=== PATIENT | female | born 1970 | race Caucasian/White ===

== ENCOUNTER → 2017-01-17 | Outpatient (REF) | payer OTHER ==
[~2017-01-17] MED LIST: ATIV1TAB10 PO; DEXI30CA2 PO; FLAG500T PO; LEVO137T2 PO; VANC125C2 PO
== END ==
LOC: M LAB REF 16:26
PROVIDERS: ATTEND Physician Assistant
DX: R19.7 Diarrhea, unspecified (principal)

== ENCOUNTER 2017-01-24 09:32 | Emergency (ER) | payer BC, OTHER ==
[~2017-01-24] VITALS: Ht 165.1 cm; Wt 78.6 kg
[2017-01-24] MEDS ORDERED: DEXI30CA2 PO (09:42)
[2017-01-24] MEDS ORDERED: LEVO137T2 PO (09:42)
[2017-01-24] MEDS ORDERED: FLAG500T PO (09:42)
[2017-01-24] MEDS ORDERED: ATIV1TAB10 PO (09:42)
[2017-01-24] MEDS ORDERED: NS 1,000 ML IV ONE (10:15)
[2017-01-24] MEDS ORDERED: METOCLOPRAMIDE INJ 10MG/2ML VIAL (J2765) IV ONE (10:15)
[2017-01-24 10:34] LABS: BASO % 0.2 % (0.0-1.0); EOS # 0.1 K/mm3 (0.0-0.50); LARGE UNSTAINED CELL # 0.1 K/mm3 (0.0-0.4); LARGE UNSTAINED CELL % 2.1 % (0.0-4.0); LYMPH % 16.5 % (24.0-44.0); MEAN CORPUSCULAR HEMOGLOBIN 33.5 pg (27.0-33.0); MEAN CORPUSCULAR HGB CONC 33.7 g/dl (32.0-36.5); MEAN CORPUSCULAR VOLUME 99.2 fl (80.0-96.0); MONO # 0.3 K/mm3 (0.0-0.8); MONO % 5.2 % (0.0-5.0); NEUTROPHILS # 4.6 K/mm3 (1.8-7.7); NEUTROPHILS % 73.9 % (36.0-66.0); PLATELET COUNT, AUTOMATED 345 k/mm3 (150-450); RED CELL DISTRIBUTION WIDTH 13.1 % (11.5-14.5); WHITE BLOOD COUNT 6.2 K/mm3 (4.0-10.0)
[2017-01-24 10:39] LABS: INR 0.99
[2017-01-24 11:02] LABS: ALBUMIN 3.5 GM/DL (3.2-5.2); ALBUMIN/GLOBULIN RATIO 0.92 (1.00-1.93); ALKALINE PHOSPHATASE 49 U/L (45-117); ALT/SGPT 58 U/L (12-78); ANION GAP 7 MEQ/L (8-16); AST/SGOT 37 U/L (15-37); BILIRUBIN,DIRECT < 0.1 MG/DL (0.0-0.2); BILIRUBIN,TOTAL 0.2 MG/DL (0.2-1.0); BLOOD UREA NITROGEN 13 MG/DL (7-18); CALCIUM LEVEL 8.9 MG/DL (8.5-10.1); CARBON DIOXIDE LEVEL 27 MEQ/L (21-32); CHLORIDE LEVEL 105 MEQ/L (98-107); CREATININE FOR GFR 0.77 MG/DL (0.55-1.02); GLOMERULAR FILTRATION RATE > 60.0 (>58); GLUCOSE, FASTING 101 MG/DL (70-105); POTASSIUM SERUM 3.9 MEQ/L (3.5-5.1); SODIUM LEVEL 139 MEQ/L (136-145); TOTAL PROTEIN 7.3 GM/DL (6.4-8.2)
[2017-01-24] MEDS ORDERED: VANC125C2 PO (11:15)
[2017-01-24 11:26] VITALS: BP 113/67
== END 2017-01-24 11:30 | disposition home or self-care (01) ==
LOC: M ED 09:32
DX: A04.7 Enterocolitis due to Clostridium difficile (principal)
CPT/HCPCS: 80048; 80076; 83690; 85025; 85610; 96374; 99283; J2765

== ENCOUNTER → 2017-03-03 | Outpatient (CLI) | payer BC, OTHER ==
[2017-03-03 12:49] LABS: BASO % 0.4 % (0.0-1.0); EOS # 0.2 K/mm3 (0.0-0.50); EOS % 2.5 % (0.0-3.0); LARGE UNSTAINED CELL # 0.1 K/mm3 (0.0-0.4); LYMPH # 0.8 K/mm3 (1.5-4.5); LYMPH % 13.3 % (24.0-44.0); MEAN CORPUSCULAR HEMOGLOBIN 33.8 pg (27.0-33.0); MEAN CORPUSCULAR HGB CONC 33.2 g/dl (32.0-36.5); MEAN CORPUSCULAR VOLUME 101.8 fl (80.0-96.0); MONO # 0.3 K/mm3 (0.0-0.8); MONO % 4.4 % (0.0-5.0); NEUTROPHILS # 4.8 K/mm3 (1.8-7.7); NEUTROPHILS % 77.3 % (36.0-66.0); PLATELET COUNT, AUTOMATED 259 k/mm3 (150-450); RED CELL DISTRIBUTION WIDTH 13.3 % (11.5-14.5); WHITE BLOOD COUNT 6.2 K/mm3 (4.0-10.0)
[2017-03-03 13:16] LABS: ALBUMIN 3.3 GM/DL (3.2-5.2); ALKALINE PHOSPHATASE 54 U/L (45-117); ALT/SGPT 31 U/L (12-78); ANION GAP 11 MEQ/L (8-16); AST/SGOT 27 U/L (15-37); BILIRUBIN,TOTAL 0.3 MG/DL (0.2-1.0); BLOOD UREA NITROGEN 8 MG/DL (7-18); CALCIUM LEVEL 8.1 MG/DL (8.5-10.1); CARBON DIOXIDE LEVEL 22 MEQ/L (21-32); CHLORIDE LEVEL 110 MEQ/L (98-107); GLOMERULAR FILTRATION RATE > 60.0 (>58); GLUCOSE, FASTING 140 MG/DL (70-105); SODIUM LEVEL 143 MEQ/L (136-145); TOTAL PROTEIN 6.6 GM/DL (6.4-8.2)
== END ==
LOC: M LAB 11:28
PROVIDERS: ATTEND Physician Assistant
DX: A04.7 Enterocolitis due to Clostridium difficile (principal)

== ENCOUNTER → 2018-02-13 | Outpatient (REF) ==
[2018-02-13 14:55] LABS: RUBELLA IgG QUALITATIVE EQUIVOCAL (IMMUNE)
[2018-02-14 10:21] LABS: RUBEOLA IgG ANTIBODY <25.0 AU/mL (Immune >29.9)
== END ==
LOC: M LAB 13:08
DX: Z00.00 Encounter for general adult medical examination without abnormal findings (principal)

== ENCOUNTER → 2021-09-02 | Outpatient (CLI) | payer BC, MEDICAID, OTHER ==
[~2021-09-02] MED LIST changes: +E-Z-GAS II EFFERVESCENT PACKET (SODIUM BICARB./CITRIC ACID/SIMETHICONE) As Ordered ONE; +E-Z-HD 98% w/w 340GM SUSP BTL As Ordered ONE; +E-Z-PAQUE 96% w/w SUSP 176GM BTL As Ordered ONE; -VANC125C2 PO; +VANC125C3 PO
== END ==
LOC: M RAD 08:12
PROVIDERS: ATTEND Nurse Practitioner Family
DX: K44.9 Diaphragmatic hernia without obstruction or gangrene (principal); Z97.5 Presence of (intrauterine) contraceptive device

== ENCOUNTER → 2021-09-19 | Outpatient (CLI) | payer MEDICAID, OTHER ==
[~2021-09-19] MED LIST changes: -E-Z-GAS II EFFERVESCENT PACKET (SODIUM BICARB./CITRIC ACID/SIMETHICONE) As Ordered ONE; -E-Z-HD 98% w/w 340GM SUSP BTL As Ordered ONE; -E-Z-PAQUE 96% w/w SUSP 176GM BTL As Ordered ONE
== END ==
LOC: M LABSMTC 09:25
PROVIDERS: ATTEND Anesthesiology
DX: Z11.52 Encounter for screening for COVID-19 (principal)

== ENCOUNTER 2021-09-24 10:41 | Day surgery (SDC) | payer MEDICAID, OTHER ==
[~2021-09-24] VITALS: Ht 167.6 cm; Wt 95.3 kg
[~2021-09-24 10:41] MED LIST changes: +NS 1,000 ML IV ONE
[2021-09-24] MEDS ORDERED: LIDOCAINE 2% 100MG/5ML SDV (FOR ANES.) As Ordered ONE (12:41)
[2021-09-24] MEDS ORDERED: propofoL 200 MG/20 ML VIAL As Ordered ONE (12:41)
[2021-09-24] MEDS ORDERED: fentaNYL 100 MCG/2 ML INJECTION As Ordered ONE (12:41)
[2021-09-24 13:18] VITALS: BP 139/94
== END 2021-09-24 13:30 | disposition home or self-care (01) ==
LOC: M OPP 10:41
PROVIDERS: ATTEND Surgery
DX: K21.00 Gastro-esophageal reflux disease with esophagitis, without bleeding (principal); K44.9 Diaphragmatic hernia without obstruction or gangrene; K31.7 Polyp of stomach and duodenum; Z79.899 Other long term (current) drug therapy; Z91.030 Bee allergy status; Z86.19 Personal history of other infectious and parasitic diseases
CPT/HCPCS: 43239; 88305; J3010

== ENCOUNTER → 2021-10-12 | Outpatient (CLI) | payer OTHER ==
[~2021-10-12] MED LIST changes: -NS 1,000 ML IV ONE
== END ==
LOC: M WHC 07:17
PROVIDERS: ATTEND Physician Assistant
DX: R10.11 Right upper quadrant pain (principal); R11.2 Nausea with vomiting, unspecified; K21.9 Gastro-esophageal reflux disease without esophagitis; K76.0 Fatty (change of) liver, not elsewhere classified

== ENCOUNTER → 2022-01-10 | Outpatient (CLI) | payer OTHER | LOC: M LABSMTC 11:22 | PROVIDERS: ATTEND Internal Medicine Gastroenterology | DX: Z01.812 Encounter for preprocedural laboratory examination (principal); Z11.52 Encounter for screening for COVID-19 ==

== ENCOUNTER 2022-06-30 12:16 | Emergency (ER) | payer OTHER ==
[~2022-06-30] VITALS: Ht 165.1 cm; Wt 80.7 kg
[2022-06-30] MEDS ORDERED: ALBU8.5H (12:39)
[2022-06-30] MEDS ORDERED: PANT40TA29 (12:39)
[2022-06-30] MEDS ORDERED: PHEN37.58 (12:39)
[2022-06-30] MEDS ORDERED: CYCL-707 (12:39)
[2022-06-30] MEDS ORDERED: FEXO-112 (12:39)
[2022-06-30] MEDS ORDERED: BUDE10.7 (12:39)
[2022-06-30] MEDS ORDERED: PRAM0.123 (12:39)
[2022-06-30] MEDS ORDERED: ZOLP10TA2 (12:39)
[2022-06-30] MEDS ORDERED: NAPR-837 PO (16:02)
[2022-06-30 16:06] VITALS: BP 137/80
== END 2022-06-30 16:10 | disposition home or self-care (01) ==
LOC: M ED 12:16
DX: M23.91 Unspecified internal derangement of right knee (principal); W01.0XXA Fall on same level from slipping, tripping and stumbling without subsequent striking against object, initial encounter; Y99.0 Civilian activity done for income or pay; Z79.890 Hormone replacement therapy; Z79.899 Other long term (current) drug therapy; Z91.030 Bee allergy status

== ENCOUNTER → 2022-11-22 | Outpatient (CLI) | payer OTHER ==
[~2022-11-22] MED LIST changes: +ALBU8.5H; +BUDE10.7; +CYCL-707; +FEXO-112; +NAPR-837 PO; +PANT40TA29; +PHEN37.58; +PRAM0.123; +ZOLP10TA2
[2022-11-22 08:22] LABS: THYROID STIMULATING HORMONE 0.013 uIU/ML (0.55-4.78)
[2022-11-22 08:23] LABS: TOTAL 25(OH) VITAMIN D 68.6 NG/ML (20.0-100.0)
[2022-11-22 08:24] LABS: FREE T4 2.2 NG/DL (0.89-1.76)
== END ==
LOC: M LAB 07:05
PROVIDERS: ATTEND Nurse Practitioner Family
DX: E03.9 Hypothyroidism, unspecified (principal); E55.9 Vitamin D deficiency, unspecified